=== PATIENT | male | born 1935 | race Caucasian/White ===

== ENCOUNTER 2018-10-30 18:28 | Observation (INO) | payer MEDICARE, OTHER ==
[2018-10-30 18:28] VITALS: PULSE 82; BMI 19.7
--- NOTE | 2018-10-30 20:33 | ED PDOC ---
History of Present Illness History of Present Illness: Andrew Dickerson is an 83 year old male with a past medical history of COPD, CAD, diverticular disease, and hypertension who is bed-bound and presenting to the ED for evaluation of flu-like symptoms onset 3 days ago. History as per daughter who states that patient has a productive cough, tactile fever, and chills associated with decreased appetite. He has not had any nausea, vomiting, or diarrhea. Of note, patient has not had a flu shot. Patient also has a history of anemia fo r which he has needed transfusions in the past. PMD: Silas Diaz HPI: Influenza Time Seen by Provider: 10/30/18 19:32 Chief Complaint: Cough, Cold, Congestion Chief Complaint (Provider): Cough, Cold, Congestion History Per: Patient, Family Exam Limitations: no limitations Onset/Duration Of Symptoms: Days (x3) Symptoms include: fever, cough. denies: vomiting, diarrhea Past Medical History Reviewed: Historical Data, Nursing Documentation, Vital Signs Vital Signs: Last Vital Signs Temp 99.3 F 10/30/18 18:43 Pulse 73 10/30/18 18:43 Resp 18 10/30/18 18:43 BP 107/70 10/30/18 18:43 Pulse Ox 93 L 10/30/18 18:43 - Medical History PMH: Alzheimer's Disease, Anemia, Asthma, Atrial Fibrillation, CAD, Cardia Arrhythmia, COPD, Dementia, Depression, Diabetes, Emphysema, Fractures, Gastritis, HTN, Hypercholesterolemia, Pneumonia Denies: Arthritis, CHF, HIV, Hypothyroidism, Chronic Kidney Disease, Rheumatoid Arthritis - Surgical History Other surgeries: bilateral hip surgery, right hand surgery - Family History Family History: States: Unknown Family Hx - Social History Current smoker - smoking cessation education provided: No Alcohol: None Drugs: Denies - Home Medications Home Medications: Ambulatory Orders Medication Instructions Recorded Acetaminophen [Tylenol 325mg tab] 650 mg PO Q6 PRN #0 tab 08/06/15 Albuterol/Ipratropium [Duoneb 3 3 ml INH RQ6 #0 neb 08/06/15 mg/0.5 mg (3 ml) UD] Escitalopram [Lexapro] 20 mg PO DAILY #0 tab 08/06/15 Ferrous Sulfate 325 mg PO TID #0 tab 08/06/15 diltiaZEM [Cardizem] 60 mg PO QPM #0 tab 08/06/15 - Allergies Allergies/Adverse Reactions: Allergies Allergy/AdvReac Type Severity Reaction Status Date / Time No Known Allergies Allergy Verified 10/30/18 18:42 Review of Systems ROS Statement: Except As Marked, All Systems Reviewed And Found Negative Constitutional: Positive for: Fever, Chills Respiratory: Positive for: Cough Gastrointestinal: Negative for: Nausea, Vomiting, Diarrhea Physical Exam - Reviewed Nursing Documentation Reviewed: Yes Vital Signs Reviewed: Yes - Physical Exam Appears: Positive for: Non-toxic, No Acute Distress (bed bound ) Head Exam: Positive for: ATRAUMATIC, NORMAL INSPECTION, NORMOCEPHALIC Skin: Positive for: Warm, Pallor (mild) Eye Exam: Positive for: EOMI, Normal appearance, PERRL ENT: Positive for: Normal ENT Inspection Neck: Positive for: Normal, Painless ROM Cardiovascular/Chest: Positive for: Irregularly Irregular Respiratory: Positive for: Normal Breath Sounds. Negative for: Respiratory Distress Gastrointestinal/Abdominal: Positive for: Normal Exam, Soft. Negative for: Tenderness Extremity: Positive for: Normal ROM. Negative for: Deformity, Swelling Neurologic/Psych: Positive for: Alert, Oriented. Negative for: Motor/Sensory Deficits Medical Decision Making Medical Decision Making: Time: 20:05 Impression: 83 year old male with flu-like symtoms Plan: --EKG --B-Type Natriuretic Peptide --CMP --Lact Acid, Plasma --Troponin --ED Urine Dipstick --CBC --Coags --Chest X-Ray --Blood Culture --Accucheck --Influenza A B --Urinalysis 21:20 Pneumonia of right base noted on chest x-ray, IV Levaquin ordered. Patient will be admitted to Dr. Aguayo covering for Dr. Huffman. Scribe Attestation: Documented by Cleopatra Ontiveros, acting as a scribe for Ag Moody MD. Provider Scribe Attestation: All medical record entries made by the Scribe were at my direction and personally dictated by me. I have reviewed the chart and agree that the record accurately reflects my personal performance of the history, physical exam, medical decision making, and the department course for this patient. I have also personally directed, reviewed, and agree with the discharge instructions and disposition. - Laboratory Results Result Diagrams: 10/30/18 20:08 - ECG O2 Sat by Pulse Oximetry: 93 Disposition - Clinical Impression Clinical Impression: Pneumonia - Patient ED Disposition Is Patient to be Admitted: Yes - Disposition Disposition Time: 21:22 Condition: FAIR Forms: [employer] (Romansh)
[2018-10-30 20:37] LABS: BASO % 0.5 % (0.0-2.0); EOS # 0.1 K/uL (0.0-0.7); EOS % 1.5 % (0.0-4.0); HEMOGLOBIN 9.3 g/dL (12.0-18.0); LYMPH % 15.3 % (20.0-40.0); MEAN CORPUSCULAR HEMOGLOBIN 27.5 pg (27.0-31.0); MEAN CORPUSCULAR HGB CONC 31.3 g/dL (33.0-37.0); MEAN PLATELET VOLUME 8.2 fl (7.2-11.7); MONO # 0.8 K/uL (0.0-0.8); MONO % 13.4 % (0.0-10.0); NEUT # 4.3 K/uL (1.8-7.0); NEUT % 69.3 % (50.0-75.0); RBC 3.38 Mil/uL (4.40-5.90); RED CELL DISTRIBUTION WIDTH 15.6 % (11.5-14.5); WHITE BLOOD COUNT 6.3 K/uL (4.8-10.8)
[2018-10-30] MEDS ORDERED: levoFLOXacin 500 mg in D5W 500 MG/100 ML BAG IVPB STA (20:58)
[2018-10-30 21:05] LABS: INR 1.1; PROTHROMBIN TIME 12.6 Seconds (9.8-13.1)
[2018-10-30 21:08] LABS: PARTIAL THROMBOPLASTIN TIME 48.3 Seconds (25.6-37.1)
[2018-10-30 23:15] LABS: BLOOD UREA NITROGEN 28 mg/dl (9-20); CALCIUM 8.9 mg/dL (8.4-10.2); GFR NON-AFRICAN AMERICAN > 60
[2018-10-30 23:16] LABS: ALBUMIN 3.7 g/dL (3.5-5.0); ALT/SGPT 23 U/L (21-72); AST/SGOT 32 U/L (17-59); B-TYPE NATRIURETIC PEPTIDE 1250 pg/ml (0-900)
[2018-10-31] MEDS ORDERED: Dextrose 50% SYRINGE Inj (50 ml) IV PRN (06:21)
[2018-10-31] MEDS ORDERED: Glucagon Recombinant 1 mg Inj IM PRN (06:21)
[2018-10-31] MEDS ORDERED: Ergocalciferol 50,000 Intl Units Cap PO SCH (06:30)
[2018-10-31] MEDS: Albuterol-Ipratrop 3 mg / 0.5 (3 ml) UD INH SCH ×3 (07:16→19:13)
[2018-10-31] MEDS ORDERED: FERROUS SULFATE 325 MG PO SCH (09:00)
[2018-10-31] MEDS ORDERED: ASCORBIC ACID 500 MG PO SCH (09:00)
[2018-10-31] MEDS ORDERED: MAGNESIUM OXIDE 400 MG PO SCH (09:00)
[2018-10-31] MEDS ORDERED: Patient's Own Med (Multivit-Min/Fa/Lycopen/Lutein [Centrum Silver Tablet] 1 TAB) PO SCH (09:00)
--- NOTE | 2018-10-31 09:12 | CARD ---
APPROVED REPORT Date of service: 10/30/2018 EKG Measurement Heart [id number] <Conclusion> Atrial fibrillation Baseline artifact Left axis deviation Incomplete right bundle branch block Inferior infarct, age undetermined Abnormal ECG
[2018-10-31] MEDS: Insulin Regular 100 units/ml SC SCH ×4 (09:37→22:19)
[2018-10-31] MEDS: guaiFENesin DM 200 mg-20 mg/10 ml UD PO SCH ×2 (09:45→17:06)
[2018-10-31] MEDS: Pantoprazole 40 mg EC Tab PO SCH (09:45)
[2018-10-31] MEDS ORDERED: Sodium Chloride 3% for Inhalation 4 ML VIAL.NEB IH PRN (11:13)
--- NOTE | 2018-10-31 11:27 | RAD ---
Date of service: 10/30/2018 HISTORY: Chest pain. COMPARISON: 07/26/2015 FINDINGS: LUNGS: Chronic interstitial lung disease. Biapical scarring left greater than right. PLEURA: No significant pleural effusion identified, no pneumothorax apparent. CARDIOVASCULAR: No radiographic findings to suggest acute or significant cardiovascular disease. Atherosclerotic calcifications identified primarily aortic arch. OSSEOUS STRUCTURES: No significant abnormalities. VISUALIZED UPPER ABDOMEN: Normal. OTHER FINDINGS: None. IMPRESSION: No active disease. No significant interval change compared to the prior examination(s).
--- NOTE | 2018-10-31 19:09 | CP.PCM.HP ---
History of Present Illness - History of Present Illness History of Present Illness: This is an 84 y/o male admitted for increasing SOB and cough for the past few days. Past Patient History - Past Medical History & Family History Past Medical History?: Yes - Past Social History Smoking Status: Former Smoker - CARDIAC Hx Cardiac Disorders: Yes Hx Atrial Fibrillation: Yes Hx Cardia Arrhythmia: Yes Hx Congestive Heart Failure: No Hx Hypercholesterolemia: Yes Hx Hypertension: Yes - PULMONARY Hx Respiratory Disorders: Yes Hx Asthma: Yes Hx Chronic Obstructive Pulmonary Disease (COPD): Yes Hx Emphysema: Yes Hx Pneumonia: Yes - NEUROLOGICAL Hx Neurological Disorder: Yes Hx Alzheimer's Disease: Yes Hx Dementia: Yes - HEENT Hx HEENT Problems: Yes - RENAL Hx Chronic Kidney Disease: No - ENDOCRINE/METABOLIC Hx Hypothyroidism: No - HEMATOLOGICAL/ONCOLOGICAL Hx Blood Disorders: Yes Hx Anemia: Yes Hx Human Immunodeficiency Virus (HIV): No - INTEGUMENTARY Hx Dermatological Problems: No - MUSCULOSKELETAL/RHEUMATOLOGICAL Hx Musculoskeletal Disorders: Yes Hx Arthritis: No Hx Falls: Yes Hx Fractures: Yes Hx Rheumatoid Arthritis: No - GASTROINTESTINAL Hx Gastrointestinal Disorders: Yes Hx Gastritis: Yes - GENITOURINARY/GYNECOLOGICAL Hx Genitourinary Disorders: No - PSYCHIATRIC Hx Psychophysiologic Disorder: Yes Hx Depression: Yes Hx Substance Use: No - SURGICAL HISTORY Hx Surgeries: Yes Hx Orthopedic Surgery: Yes Other/Comment: RIGHT HIP ORIF - ANESTHESIA Hx Anesthesia: Yes Hx Anesthesia Reactions: No Hx Malignant Hyperthermia: No Meds Allergies/Adverse Reactions: Allergies Allergy/AdvReac Type Severity Reaction Status Date / Time levofloxacin Allergy ITCHING Verified 10/31/18 02:22 acetaminophen [From Tylenol] AdvReac bleeding Verified 10/31/18 02:22 aspirin AdvReac bleeding Verified 10/31/18 02:22 Results - Vital Signs Recent Vital Signs: Last Vital Signs Temp 98.3 F 10/31/18 17:00 Pulse 77 10/31/18 17:00 Resp 20 10/31/18 17:00 BP 111/49 L 10/31/18 17:00 Pulse Ox 94 L 10/31/18 17:00 - Labs Result Diagrams: 10/30/18 20:08 10/30/18 22:05 Labs: Laboratory Results - last 24 hr 10/30/18 10/30/18 10/30/18 20:08 20:08 20:08 WBC 6.3 RBC 3.38 L Hgb 9.3 L Hct 29.7 L MCV 88.0 D MCH 27.5 MCHC 31.3 L RDW 15.6 H Plt Count 339 D MPV 8.2 Neut % (Auto) 69.3 Lymph % (Auto) 15.3 L [place] % (Auto) 13.4 H Eos % (Auto) 1.5 Baso % (Auto) 0.5 Neut # (Auto) 4.3 Lymph # (Auto) 1.0 [place] # (Auto) 0.8 Eos # (Auto) 0.1 Baso # (Auto) 0.0 PT 12.6 INR 1.1 APTT 48.3 H Sodium Potassium Chloride Carbon Dioxide Anion Gap BUN Creatinine Est GFR ( Amer) Est GFR (Non-Af Amer) POC Glucose (mg/dL) Random Glucose Lactic Acid Calcium Total Bilirubin AST ALT Alkaline Phosphatase Troponin I NT-Pro-B Natriuret Pep Total Protein Albumin Globulin Albumin/Globulin Ratio Influenza Typ A,B (EIA) Negative for flu a/b 10/30/18 10/30/18 10/31/18 20:24 22:05 06:34 WBC RBC Hgb Hct MCV MCH MCHC RDW Plt Count MPV Neut % (Auto) Lymph % (Auto) [place] % (Auto) Eos % (Auto) Baso % (Auto) Neut # (Auto) Lymph # (Auto) [place] # (Auto) Eos # (Auto) Baso # (Auto) PT INR APTT Sodium 136 Potassium 4.4 Chloride 98 Carbon Dioxide 28 Anion Gap 14 BUN 28 H Creatinine 1.1 Est GFR ( Amer) > 60 Est GFR (Non-Af Amer) > 60 POC Glucose (mg/dL) 130 H Random Glucose 111 H Lactic Acid 1.6 Calcium 8.9 Total Bilirubin 0.1 L AST 32 ALT 23 Alkaline Phosphatase 87 Troponin I < 0.0120 NT-Pro-B Natriuret Pep 1250 H Total Protein 7.5 Albumin 3.7 Globulin 3.8 Albumin/Globulin Ratio 1.0 Influenza Typ A,B (EIA) 10/31/18 10/31/18 11:03 15:45 WBC RBC Hgb Hct MCV MCH MCHC RDW Plt Count MPV Neut % (Auto) Lymph % (Auto) [place] % (Auto) Eos % (Auto) Baso % (Auto) Neut # (Auto) Lymph # (Auto) [place] # (Auto) Eos # (Auto) Baso # (Auto) PT INR APTT Sodium Potassium Chloride Carbon Dioxide Anion Gap BUN Creatinine Est GFR ( Amer) Est GFR (Non-Af Amer) POC Glucose (mg/dL) 131 H 126 H Random Glucose Lactic Acid Calcium Total Bilirubin AST ALT Alkaline Phosphatase Troponin I NT-Pro-B Natriuret Pep Total Protein Albumin Globulin Albumin/Globulin Ratio Influenza Typ A,B (EIA)
[2018-10-31] MEDS: Multivitamin With Minerals Tab PO SCH (19:16)
[2018-10-31] MEDS: Magnesium Oxide 400 mg Tab UD PO SCH (19:16)
[2018-11-01] MEDS: guaiFENesin DM 200 mg-20 mg/10 ml UD PO SCH ×3 (01:13→17:15)
[2018-11-01 06:32] LABS: HEMOGLOBIN 8.6 g/dL (12.0-18.0); MEAN CELL VOLUME 86.3 fl (80.0-94.0); MEAN CORPUSCULAR HGB CONC 31.2 g/dL (33.0-37.0); RBC 3.17 Mil/uL (4.40-5.90); WHITE BLOOD COUNT 6.4 K/uL (4.8-10.8)
[2018-11-01 06:41] LABS: ALB/GLOB RATIO 0.8 (1.0-2.1); ALBUMIN 3.2 g/dL (3.5-5.0); ALT/SGPT 26 U/L (21-72); AST/SGOT 30 U/L (17-59); BLOOD UREA NITROGEN 28 mg/dl (9-20); CALCIUM 8.6 mg/dL (8.4-10.2); GFR NON-AFRICAN AMERICAN > 60
[2018-11-01] MEDS: Insulin Regular 100 units/ml SC SCH ×4 (07:04→22:26)
[2018-11-01] MEDS: Albuterol-Ipratrop 3 mg / 0.5 (3 ml) UD INH SCH ×3 (07:23→20:11)
[2018-11-01] MEDS ORDERED: Azithromycin 500 MG in Sodium Chloride 0.9% 250 ML IVPB SCH (09:00)
[2018-11-01] MEDS: Magnesium Oxide 400 mg Tab UD PO SCH (09:08)
[2018-11-01] MEDS: Multivitamin With Minerals Tab PO SCH (09:08)
[2018-11-01] MEDS: Pantoprazole 40 mg EC Tab PO SCH (09:09)
--- NOTE | 2018-11-01 15:05 | RAD ---
Date of service: 11/01/2018 HISTORY: sob,cough COMPARISON: 10/30/2018. TECHNIQUE: Chest PA and lateral FINDINGS: LUNGS: Stable findings primarily fibronodular changes and pleural thickening both apices. PLEURA: No significant pleural effusion identified. No pneumothorax apparent. CARDIOVASCULAR: Atherosclerotic calcifications identified primarily aortic arch. No significant interval change compared to the prior examination(s). No pulmonary vascular congestion. OSSEOUS STRUCTURES: No significant abnormalities. VISUALIZED UPPER ABDOMEN: Normal. OTHER FINDINGS: None. IMPRESSION: No active disease. No significant interval change compared to the prior examination(s).
[2018-11-01 17:00] VITALS: RESP 20
--- NOTE | 2018-11-01 22:51 | CARD ---
APPROVED REPORT Date of service: 11/01/2018 EXAM: Two-dimensional and M-mode echocardiogram with Doppler and color Doppler. Other Information Quality : PoorRhythm : NSR Technically limited study due to Only 4C window available INDICATION Elevated Pro BNp Aortic Valve AoV Peak Qxljtwfr690.7cm/sAoV VTI20.7cmAO Peak GR.7mmHg LVOT Peak Qgbxjaxt19.6cm/sLVOT VTI14.62cmAO Mean GR.4mmHg Mitral Valve MV E Xjrlxujh88.6cm/sMV DECEL [id number] A Vddiyyho43.8cm/s MV KAV19vzE/A ratio1.1MVA (PHT)3.27cm2 TDI E/Lateral E'0.0E/Medial E'0.0 Tricuspid Valve TR Peak Mzbkmibh090ve/sRAP UPVEKYJC56fbGrVD Peak Gr.39mmHg RZZW13dvKx LEFT VENTRICLE The left ventricle is normal size. There is normal left ventricular wall thickness. The left ventricular systolic function is normal. The estimated ejection fraction is 60-65% No regional wall motion abnormalities noted.. Transmitral Doppler flow pattern is Grade I-abnormal relaxation pattern. No left ventricle thrombus noted on this study. There is no ventricular septal defect visualized. There is no left ventricular aneurysm. There is no mass noted in the left ventricle. RIGHT VENTRICLE The right ventricle is normal size. There is normal right ventricular wall thickness. The right ventricular systolic function is normal. ATRIA The left atrium size is mildly dilated. The right atrium size is normal. The interatrial septum is intact with no evidence for an atrial septal defect. AORTIC VALVE The aortic valve is normal in structure. No aortic regurgitation is present. There is no aortic valvular stenosis. There is no aortic valvular vegetation. MITRAL VALVE The mitral valve is normal in structure. There is no evidence of mitral valve prolapse. There is no mitral valve stenosis. There is mild to moderate mitral valve regurgitation noted. TRICUSPID VALVE The tricuspid valve is normal in structure. There is mild tricuspid valve regurgitation noted. RVSP is calculated at 45 mm Hg, consistent with mild pulmonary hypertension. There is no tricuspid valve prolapse or vegetation. There is no tricuspid valve stenosis. PULMONIC VALVE The pulmonary valve is normal in structure. There is no pulmonic valvular regurgitation. There is no pulmonic valvular stenosis. GREAT VESSELS The aortic root is normal in size. The ascending aorta is normal in size. The pulmonary artery is normal. The IVC is not visualized. PERICARDIAL EFFUSION There is no pericardial effusion. There is no pleural effusion. <Conclusion> Technically difficult study with limited views. The estimated ejection fraction is 60-65% Transmitral Doppler flow pattern is Grade I-abnormal relaxation pattern. The left atrium size is probably mildly dilated. There is mild to moderate mitral valve regurgitation noted. There is mild tricuspid valve regurgitation noted. RVSP is calculated at 45 mm Hg, consistent with mild pulmonary hypertension. The IVC is not visualized.
[2018-11-01 23:48] VITALS: BP 99/56; PULSE 85; TEMP 98.1; O2SAT 94
[2018-11-02] MEDS: guaiFENesin DM 200 mg-20 mg/10 ml UD PO SCH (00:58)
== END 2018-11-02 01:29 | disposition home health service (06) ==
LOC: H.ER 18:28 → H.ERHOLD 21:33 → INTOOBSV 21:33 → H.MEDSURG1 10-31 01:59
PROVIDERS: ADMIT Family Medicine; ATTEND Family Medicine
DX: J18.9 Pneumonia, unspecified organism (principal); J43.9 Emphysema, unspecified; I25.10 Atherosclerotic heart disease of native coronary artery without angina pectoris; I10 Essential (primary) hypertension; I48.91 Unspecified atrial fibrillation; F02.80 Dementia in other diseases classified elsewhere, unspecified severity, without behavioral disturbance, psychotic disturbance, mood disturbance, and anxiety; G30.9 Alzheimer's disease, unspecified; E11.9 Type 2 diabetes mellitus without complications; E78.00 Pure hypercholesterolemia, unspecified; Z87.01 Personal history of pneumonia (recurrent); Z87.891 Personal history of nicotine dependence; Z88.6 Allergy status to analgesic agent; Z88.1 Allergy status to other antibiotic agents
CPT/HCPCS: 36415; 71045; 71046; 80053; 82948; 83605; 83880; 84145; 84484; 85025; 85027; 85610; 85730; 87040; 87070; 87804; 93005; 93306; 94640; 99283; G0378; J0456; J0696; J7050

== ENCOUNTER 2019-03-24 05:51 | Inpatient (IN) | payer MEDICARE, OTHER ==
[2019-03-24 05:52] VITALS: PULSE 82; BMI 19.7
[2019-03-24] MEDS ORDERED: Albuterol-Ipratrop 3 mg / 0.5 (3 ml) UD INH STA (06:14)
--- NOTE | 2019-03-24 06:19 | ED PDOC ---
HPI: SOB/CHF/COPD Time Seen by Provider: 03/24/19 05:55 Chief Complaint (Nursing): Respiratory Distress Chief Complaint (Provider): Respiratory Distress History Per: Patient, EMS, Family (Daughter) History/Exam Limitations: no limitations Associated Symptoms: denies: Fever, Chest Pain Additional Complaint(s): 83 years old male with history of COPD, GI bleed, anemia, pneumonia and diabetes brought by EMS to ED for evaluation of low O2Sat. 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 EMS report on arrival the O2Sat was 77%. Daughter reports patient uses oxygen only when needed, not all the time. Patient denies any complaints, chest pain, shortness of breath, recent illnesses, cough or fever. PMD: Silas Diaz Past Medical History Reviewed: Historical Data, Nursing Documentation, Vital Signs Vital Signs: Last Vital Signs Temp 97.9 F 03/24/19 05:53 Pulse 74 03/24/19 05:53 Resp 22 03/24/19 05:53 BP 115/40 L 03/24/19 05:53 Pulse Ox 100 03/24/19 05:53 Primary Care Provider: Silas Diaz - Medical History PMH: Alzheimer's Disease, Anemia, Asthma, Atrial Fibrillation, CAD, Cardia Arrhythmia, COPD, Dementia, Depression, Diabetes, Emphysema, Fractures, Gastritis, HTN, Hypercholesterolemia, Pneumonia Denies: Arthritis, CHF, HIV, Hypothyroidism, Chronic Kidney Disease, Rheumatoid Arthritis Other PMH: GI bleed - Surgical History Surgical History: No Surg Hx - Family History Family History: States: Unknown Family Hx - Home Medications Home Medications: Ambulatory Orders Medication Instructions Recorded Albuterol/Ipratropium [Duoneb 3 3 ml INH RQ6 #0 neb 08/06/15 mg/0.5 mg (3 ml) UD] Escitalopram [Lexapro] 20 mg PO DAILY #0 tab 08/06/15 Ferrous Sulfate 325 mg PO TID #0 tab 08/06/15 Ascorbic Acid [Vitamin C] 500 mg PO DAILY 10/30/18 Ergocalciferol (Vitamin D2) 1 cap PO QWK 10/30/18 [Vitamin D2] Magnesium Oxide [Mag-Oxide] 400 mg PO DAILY 10/30/18 Metoprolol Tartrate [Lopressor] 6.25 mg PO PRN PRN 10/30/18 Omeprazole 20 mg PO DAILY 10/30/18 metFORMIN [glucOPHAGE] 500 mg PO BID 10/30/18 - Allergies Allergies/Adverse Reactions: Allergies Allergy/AdvReac Type Severity Reaction Status Date / Time azithromycin Allergy ITCHING Verified 03/24/19 05:54 levofloxacin Allergy ITCHING Verified 03/24/19 05:54 acetaminophen [From Tylenol] AdvReac bleeding Verified 03/24/19 05:54 aspirin AdvReac bleeding Verified 03/24/19 05:54 Review of Systems ROS Statement: Except As Marked, All Systems Reviewed And Found Negative Constitutional: Negative for: Fever Cardiovascular: Negative for: Chest Pain Respiratory: Negative for: Cough, Shortness of Breath Physical Exam - Reviewed Nursing Documentation Reviewed: Yes Vital Signs Reviewed: Yes - Physical Exam Appears: Positive for: Well, No Acute Distress Head Exam: Positive for: ATRAUMATIC, NORMOCEPHALIC Skin: Positive for: Warm, Dry, Pallor Eye Exam: Positive for: Normal appearance, EOMI, PERRL ENT: Positive for: Normal ENT Inspection Neck: Positive for: Normal, Painless ROM, Supple Cardiovascular/Chest: Positive for: Regular Rate, Rhythm. Negative for: Murmur Respiratory: Positive for: Crackles (throughout left lung). Negative for: Accessory Muscle Use Gastrointestinal/Abdominal: Positive for: Normal Exam, Soft. Negative for: Tenderness Back: Positive for: Normal Inspection. Negative for: L CVA Tenderness, R CVA Tenderness Extremity: Positive for: Other (Contraction to lower extremities) Neurological/Psych: Positive for: Awake, Alert, Oriented (x3), Other (Speaking full sentence) - Laboratory Results Result Diagrams: 03/24/19 06:12 03/24/19 06:12 - ECG O2 Sat by Pulse Oximetry: 100 (RA) Pulse Ox Interpretation: Normal Medical Decision Making Medical Decision Making: Time: 606 A/P: unexplained hypoxia possibly related to pneumonia vs. pulmonary edema vs. ASC vs. chronic lung disease --ABG --EKG --BNP --BMP --CBC --PTT --PT --CXR --Albuterol 4 ml INH --Blood culture [address] Meraz, pending labs and reevaluation. - Scribe Attestation: Documented by Kathleen Herzog acting as a scribe for Ga Kang MD. Provider Scribe Attestation: All medical record entries made by the Scribe were at my direction and personally dictated by me. I have reviewed the chart and agree that the record accurately reflects my personal performance of the history, physical exam, medical decision making, and the department course for this patient. I have also personally directed, reviewed, and agree with the discharge instructions and disposition. Disposition - Clinical Impression Clinical Impression: Pneumonia - Patient ED Disposition Is Patient to be Admitted: Transfer of Care - Disposition Disposition: Transfer of Care Disposition Time: 07:00 Condition: FAIR Patient Signed Over To: Paz Meraz (pending labs and reevaluation)
[2019-03-24 06:27] LABS: ABG ALLEN TEST YES; ARTERIAL BLOOD GAS HCO3 29.4 mmol/L (21-28); ARTERIAL BLOOD GAS PCO2 53 mm/Hg (35-45); ARTERIAL BLOOD GAS PH 7.39 (7.35-7.45); ARTERIAL BLOOD GAS PO2 102 mm/Hg (80-100); ARTERIAL BLOOD GAS TCO2 33.7 mmol/L (22-28)
[2019-03-24] MEDS ORDERED: Albuterol-Ipratrop 3 mg / 0.5 (3 ml) UD ONE (06:34)
[2019-03-24] MEDS ORDERED: cefTRIAXone 2 GM in Sodium Chloride 0.9% 100 ML IVPB STA (06:47)
[2019-03-24] MEDS ORDERED: Sodium Chloride 0.9% 1,000 ML IV STA (06:48)
[2019-03-24 07:03] LABS: BASO # 0.1 K/uL (0.0-0.2); EOS # 0.3 K/uL (0.0-0.7)
[2019-03-24 07:10] LABS: BASO % 1.3 % (0.0-2.0); EOS % 4.1 % (0.0-4.0); LYMPH % 14.1 % (20.0-40.0); MEAN CELL VOLUME 93.6 fl (80.0-94.0); MEAN CORPUSCULAR HEMOGLOBIN 29.7 pg (27.0-31.0); MEAN CORPUSCULAR HGB CONC 31.7 g/dL (33.0-37.0); MEAN PLATELET VOLUME 8.3 fl (7.2-11.7); MONO # 0.7 K/uL (0.0-0.8); MONO % 9.5 % (0.0-10.0); NRBC % 0.1 % (0.0-0.0); RBC 2.18 Mil/uL (4.40-5.90); RED CELL DISTRIBUTION WIDTH 15.5 % (11.5-14.5)
--- NOTE | 2019-03-24 07:15 | ED PDOC ---
- Laboratory Results Result Diagrams: 03/26/19 10:50 03/24/19 06:12 Lab Results: pCO2 53 mm/Hg (35-45) H 03/24/19 06:19 pO2 102 mm/Hg (80-100) H 03/24/19 06:19 HCO3 29.4 mmol/L (21-28) H 03/24/19 06:19 ABG pH 7.39 (7.35-7.45) 03/24/19 06:19 ABG Total CO2 33.7 mmol/L (22-28) H 03/24/19 06:19 ABG O2 Saturation 101.0 % (95-98) H 03/24/19 06:19 ABG Base Excess 5.7 mmol/L (-2.0-3.0) H 03/24/19 06:19 Chris Test Yes 03/24/19 06:19 ABG Potassium 4.3 mmol/L (3.6-5.2) 03/24/19 06:19 A-a O2 Difference 31.0 mm/Hg 03/24/19 06:19 Sodium 137.0 mmol/L (132-148) 03/24/19 06:19 Chloride 104.0 mmol/L (98-107) 03/24/19 06:19 Glucose 107 mg/dL (75-110) 03/24/19 06:19 Lactate 1.0 mmol/L (0.7-2.1) 03/24/19 06:19 FiO2 28.0 % 03/24/19 06:19 - ECG O2 Sat by Pulse Oximetry: 100 (RA) Medical Decision Making Medical Decision Makin: This patient signed out to this provider. Pending CT and labs. Disposition - Clinical Impression Clinical Impression: COPD exacerbation, Lung mass, Anemia - POA Present On Arrival: None - Disposition Disposition: Admitted as In-Patient Disposition Time: 08:40 Condition: STABLE
[2019-03-24 07:19] LABS: HEMOGLOBIN 6.5 g/dL (12.0-18.0)
[2019-03-24 07:24] LABS: BLOOD UREA NITROGEN 23 mg/dl (9-20); CALCIUM 8.6 mg/dL (8.4-10.2); GFR NON-AFRICAN AMERICAN > 60
[2019-03-24 07:32] LABS: B-TYPE NATRIURETIC PEPTIDE 878 pg/ml (0-900)
[2019-03-24 07:34] LABS: PROTHROMBIN TIME 11.6 Seconds (9.8-13.1)
[2019-03-24 07:37] LABS: PARTIAL THROMBOPLASTIN TIME 48.1 Seconds (25.6-37.1)
--- NOTE | 2019-03-24 08:47 | CT ---
Date of service: 03/24/2019 PROCEDURE: CT Chest without contrast HISTORY: hypoxia COMPARISON: Unenhanced chest CT 05/08/2015. TECHNIQUE: Contiguous axial images were obtained through the chest without intravenous contrast enhancement. Sagittal and coronal reconstructions were performed. Radiation dose: Total exam DLP = 426.49 mGy-cm. This CT exam was performed using one or more of the following dose reduction techniques: Automated exposure control, adjustment of the mA and/or kV according to patient size, and/or use of iterative reconstruction technique. FINDINGS: LUNGS: Centrilobular emphysematous changes are again apparent primarily at the bilateral upper lobes but also affecting the left lower lobe markedly. Right lower and right middle lobes remain least affected. Marked volume loss is appreciated at the left lung due to extensive fibrosis once again, particularly at the left lower lobe with diminished bulla favored over cavitation at the left apex versus diminished chronic pneumothorax. Chronic pneumothorax is felt to be the least likely origin of this finding. Mild traction bronchiectasis is appreciate the left upper and lower lobes once again. Overall, central airways appear grossly clear though motion artifacts from respiration obscure the exam somewhat. No definite acute infiltrate. In fact, there is apparent resolution of prior infiltrate seen the bilateral upper lobes. There is a nodule with spiculated changes at the right upper lobe in image 28 series 3 measuring 1.2 x 1.0 cm with spicular peripheral changes suspicious for neoplasm. No additional pulmonary mass appreciable. MEDIASTINUM: The thoracic inlet appears unremarkable. Normal caliber thoracic aorta though prominent atherosclerotic changes are associated. Mild to moderate mediastinal lymphadenopathy is appreciate including 1.9 x 1.7 cm precarinal lymph node, 1.4 x 1.2 cm inferior pretracheal lymph node and a 1.5 x 1.0 cm left suprahilar lymph node. No prominent right hilar adenopathy. Normal sized heart. Main pulmonary artery unremarkable. No vascular congestion. Calcific atherosclerotic changes are seen related to the thoracic aorta. PLEURA: No pleural fluid. No right pneumothorax. Potential chronic small left pneumothorax diminished in volume at left apex versus diminishing cavitation. BONES: Diffuse osteopenia suggests osteoporosis. No acute interval fracture. Thin diffuse bridging osteophytes are again seen throughout the thoracic spine potentially reflecting ankylosing spondylitis or possibly DISH. UPPER ABDOMEN: Grossly unremarkable. OTHER FINDINGS: None. IMPRESSION: 1. No definitive acute infiltrate. In fact, prior left greater than right sided pulmonary infiltrates appear to have resolved in the interval. Trace pericardial thickening or fluid is noted. No pleural effusion bilaterally. 2. 1.2 cm nodule suspicious for neoplasm right upper lobe. [id number] mediastinal lymphadenopathy noted. 3. Gross COPD changes are reiterated including extensive biapical emphysematous and left greater than right fibrotic changes as well as left lower lobe. Diminished large bulla or cavitation left apex. Diminishing small chronic left apical pneumothorax less likely.
--- NOTE | 2019-03-24 09:20 | RAD ---
Date of service: 03/24/2019 HISTORY: hypoxia COMPARISON: Chest radiographs 11/01/2018. TECHNIQUE: 1 view obtained. FINDINGS: LUNGS: Chronic pulmonary fibrotic changes are again identified primarily at the bilateral apices with significant left-sided volume loss reiterated. Prominent apical pleural thickening is reiterated at the left apex with potential calcified granulomata at the left apex as well. A skin fold is seen at the inferior right chest laterally. PLEURA: No significant pleural effusion identified, no pneumothorax apparent. CARDIOVASCULAR: Calcific atherosclerotic changes are seen related to the thoracic aorta. Normal cardiac size. No pulmonary vascular congestion. OSSEOUS STRUCTURES: No significant abnormalities. VISUALIZED UPPER ABDOMEN: Normal. OTHER FINDINGS: None. IMPRESSION: Left greater than right biapical pulmonary fibrosis and pleural thickening are reiterated with volume loss again noted at the left chest, potentially post granulomatous etiology. No acute infiltrate, pleural effusion or pneumothorax. No pulmonary vascular congestion.
[2019-03-24] MEDS: Dextrose 5%/Lactated Ringer's 1,000 ML IV SCH (16:03)
--- NOTE | 2019-03-24 17:39 | CARD ---
APPROVED REPORT Date of service: 03/24/2019 EKG Measurement Heart [id number] <Conclusion> Sinus rhythm with frequent premature atrial complexes Left axis deviation Incomplete right bundle branch block Inferior infarct, age undetermined Abnormal ECG
[2019-03-24] MEDS: Albuterol-Ipratrop 3 mg / 0.5 (3 ml) UD INH SCH (19:16)
[2019-03-24] MEDS: Lidocaine 5% Patch TD SCH (21:08)
[2019-03-25] MEDS: Albuterol-Ipratrop 3 mg / 0.5 (3 ml) UD INH SCH ×4 (01:00→20:08)
[2019-03-25] MEDS: Dextrose 5%/Lactated Ringer's 1,000 ML IV SCH (03:00)
[2019-03-25 05:58] LABS: MEAN CELL VOLUME 91.1 fl (80.0-94.0); MEAN CORPUSCULAR HEMOGLOBIN 30.6 pg (27.0-31.0); MEAN CORPUSCULAR HGB CONC 33.6 g/dL (33.0-37.0); RBC 2.92 Mil/uL (4.40-5.90); RED CELL DISTRIBUTION WIDTH 15.2 % (11.5-14.5); WHITE BLOOD COUNT 8.7 K/uL (4.8-10.8)
[2019-03-25 06:09] LABS: HEMOGLOBIN 8.9 g/dL (12.0-18.0)
--- NOTE | 2019-03-25 08:46 | CP.PCM.HP ---
History of Present Illness - History of Present Illness History of Present Illness: This is an 83 y/o male admitted for progressive lethargy and very low Ox saturation noted by homemaker. Initial labs showed Hgb of 6.5 he has a hx of COPD , anemia DM 2 and dementia? He stays mostly in bed at home. He receives homemaker services. Noted to have a 1.2 cm RUL nodule. Present on Admission - Present on Admission Any Indicators Present on Admission: No History of DVT/PE: No History of Uncontrolled Diabetes: Yes Urinary Catheter: No Decubitus Ulcer Present: No Review of Systems - Constitutional Constitutional: Anorexia - Respiratory Respiratory: Dyspnea - Gastrointestinal Gastrointestinal: Abdominal Pain Past Patient History - Past Medical History & Family History Past Medical History?: Yes - Past Social History Smoking Status: Former Smoker - CARDIAC Hx Atrial Fibrillation: Yes Hx Cardia Arrhythmia: Yes Hx Congestive Heart Failure: No Hx Hypercholesterolemia: Yes Hx Hypertension: Yes - PULMONARY Hx Asthma: Yes Hx Chronic Obstructive Pulmonary Disease (COPD): Yes Hx Emphysema: Yes Hx Pneumonia: Yes - NEUROLOGICAL Hx Alzheimer's Disease: Yes Hx Dementia: Yes - HEENT Hx HEENT Problems: Yes - RENAL Hx Chronic Kidney Disease: No - ENDOCRINE/METABOLIC Hx Hypothyroidism: No - HEMATOLOGICAL/ONCOLOGICAL Hx Anemia: Yes Hx Human Immunodeficiency Virus (HIV): No - INTEGUMENTARY Hx Dermatological Problems: No - MUSCULOSKELETAL/RHEUMATOLOGICAL Hx Arthritis: No Hx Fractures: Yes Hx Rheumatoid Arthritis: No - GASTROINTESTINAL Hx Gastritis: Yes - GENITOURINARY/GYNECOLOGICAL Hx Genitourinary Disorders: No - PSYCHIATRIC Hx Depression: Yes - SURGICAL HISTORY Hx Surgeries: Yes Hx Orthopedic Surgery: Yes Other/Comment: RIGHT HIP ORIF - ANESTHESIA Hx Anesthesia: Yes Hx Anesthesia Reactions: No Hx Malignant Hyperthermia: No Meds Allergies/Adverse Reactions: Allergies Allergy/AdvReac Type Severity Reaction Status Date / Time azithromycin Allergy ITCHING Verified 03/24/19 05:54 levofloxacin Allergy ITCHING Verified 03/24/19 05:54 acetaminophen [From Tylenol] AdvReac bleeding Verified 03/24/19 05:54 aspirin AdvReac bleeding Verified 03/24/19 05:54 Physical Exam - Head Exam Head Exam: NORMAL INSPECTION - Eye Exam Eye Exam: Normal appearance Additional comments: pale conjunctivae - ENT Exam ENT Exam: Mucous Membranes Moist - Respiratory Exam Respiratory Exam: Clear to Auscultation Bilateral - Cardiovascular Exam Cardiovascular Exam: REGULAR RHYTHM - Neurological Exam Neurological exam: Altered, CN II-XII Intact - Psychiatric Exam Psychiatric exam: Flat Affect Results - Vital Signs Recent Vital Signs: Last Vital Signs Temp 98.0 F 03/25/19 07:58 Pulse 63 03/25/19 07:58 Resp 20 03/25/19 07:58 BP 128/39 L 03/25/19 07:58 Pulse Ox 95 03/25/19 07:58 - Labs Result Diagrams: 03/25/19 05:19 03/24/19 06:12 Labs: Laboratory Results - last 24 hr 03/24/19 03/24/19 03/24/19 09:06 16:14 21:37 WBC RBC Hgb Hct MCV MCH MCHC RDW Plt Count POC Glucose (mg/dL) 127 H 151 H Blood Type O POSITIVE Antibody Screen Negative Crossmatch See Detail BBK History Checked Patient has bt 03/25/19 03/25/19 05:15 05:19 WBC 8.7 RBC 2.92 L Hgb 8.9 L D Hct 26.6 L MCV 91.1 D MCH 30.6 MCHC 33.6 RDW 15.2 H Plt Count 315 POC Glucose (mg/dL) 140 H Blood Type Antibody Screen Crossmatch BBK History Checked Assessment & Plan (1) Anemia Status: Chronic Priority: Medium (2) COPD (chronic obstructive pulmonary disease) Status: Acute (3) Dementia Status: Acute (4) Diabetes mellitus type 2 in nonobese Status: Acute (5) Lung nodule Status: Acute - Assessment and Plan (Free Text) Plan: Cont meds transfusion check cbc conservative approach on lung nodule GI eval antacid PPI
[2019-03-25] MEDS: Lidocaine 5% Patch TD SCH (08:47)
[2019-03-25] MEDS: Magnesium Oxide 400 mg Tab UD PO SCH (09:00)
[2019-03-25] MEDS ORDERED: Lidocaine Hydrochloride 5 ML INJ ONE (10:51)
--- NOTE | 2019-03-25 23:00 | CP.PCM.PN ---
Subjective - Date & Time of Evaluation Date of Evaluation: 03/25/19 Time of Evaluation: 12:20 - Subjective Subjective: Patient feels better had received transfusions and noted Hgb 8.5 Accuchecks are elevated Has no fever. Objective - Vital Signs/Intake and Output Vital Signs (last 24 hours): Temp Pulse Resp BP Pulse Ox 97.8 F 86 18 121/50 L 98 03/25/19 20:27 03/25/19 21:49 03/25/19 20:27 03/25/19 21:49 03/25/19 20:27 - Medications Medications: Current Medications Albuterol/Ipratropium (Duoneb 3 Mg/0.5 Mg (3 Ml) Ud) 3 ml INH RQ6 [facility] Last Admin: 03/25/19 01:00 Dose: 3 ml Ascorbic Acid (Vitamin C 500 Mg Tab) 500 mg PO DAILY [facility] Last Admin: 03/25/19 09:00 Dose: 500 mg Ferrous Sulfate (Feosol) 325 mg PO TID [facility] Last Admin: 03/25/19 17:31 Dose: 325 mg Lidocaine (Lidoderm) 1 ea TD DAILY [facility] Last Admin: 03/25/19 08:47 Dose: Not Given Magnesium Oxide (Mag-Ox) 400 mg PO DAILY [facility] Last Admin: 03/25/19 09:00 Dose: 400 mg Metformin HCl (Glucophage) 500 mg PO BID [facility] Last Admin: 03/25/19 17:31 Dose: 500 mg Metoprolol Tartrate (Lopressor) 6.25 mg PO Q12 [facility] Last Admin: 03/25/19 21:49 Dose: 6.25 mg Pantoprazole Sodium (Protonix Inj) 40 mg IVP DAILY [facility] Last Admin: 03/25/19 09:00 Dose: 40 mg - Labs Labs: 03/25/19 05:19 03/24/19 06:12 PT 11.6 Seconds (9.8-13.1) 03/24/19 06:12 INR 1.0 03/24/19 06:12 APTT 48.1 Seconds (25.6-37.1) H 03/24/19 06:12 - Head Exam Head Exam: NORMAL INSPECTION - Eye Exam Eye Exam: Normal appearance - Respiratory Exam Respiratory Exam: Clear to Ausculation Bilateral - Cardiovascular Exam Cardiovascular Exam: REGULAR RHYTHM - GI/Abdominal Exam GI & Abdominal Exam: Soft Assessment and Plan (1) Anemia Status: Chronic (2) Diabetes mellitus type 2 in nonobese Status: Acute (3) Emphysema with chronic bronchitis Status: Acute (4) GI bleed Status: Acute - Assessment and Plan (Free Text) Plan: Cont meds DC metformin start Januvia and pioglitazone cont meds.
[2019-03-26] MEDS: Albuterol-Ipratrop 3 mg / 0.5 (3 ml) UD INH SCH ×3 (01:12→13:18)
[2019-03-26 08:32] VITALS: RESP 18
[2019-03-26] MEDS: Lidocaine 5% Patch TD SCH (09:03)
[2019-03-26] MEDS: Magnesium Oxide 400 mg Tab UD PO SCH (09:06)
--- NOTE | 2019-03-26 09:18 | CON ---
DATE: 03/25/2019 REFERRING PHYSICIAN: Dr. Mario Aguayo. REASON FOR CONSULTATION: Anemia. HISTORY OF PRESENT ILLNESS: This is an 83-year-old male with a history of anemia in the past, pneumonia, diabetes, hemoglobin was checked, it was low and GI was called. There was no evidence of bleeding. The patient has a history of Alzheimer's, dementia, anemia, asthma, AFib, CAD, cardiac arrhythmia, COPD, depression, diabetes, emphysema, and hypercholesterolemia. The patient is currently lying in bed comfortably in no apparent distress. PAST MEDICAL HISTORY: As above. PAST SURGICAL HISTORY: As above. MEDICATIONS: Have been reviewed. REVIEW OF SYSTEMS: All other systems have been reviewed and negative apart from the HPI. PHYSICAL EXAMINATION: VITAL SIGNS: Here in the hospital are grossly unremarkable. GENERAL: A pleasant elderly male, lying in bed comfortable, in no apparent distress. HEENT: Head, normocephalic and atraumatic. Eyes, pupils are equally reactive to light bilaterally. No conjunctival pallor or icterus. NECK: Supple. Normal range of motion. No lymphadenopathy appreciated. LUNGS: Coarse breath sounds bilaterally. HEART: S1 and S2. Regular rate and rhythm. ABDOMEN: Soft and nontender. Bowel sounds present. No rebound. No guarding. RECTAL: Deferred. EXTREMITIES: Pulses felt bilaterally. SKIN: Warm, dry, and intact. NEUROLOGIC: Alert and oriented x1. LABORATORY DATA: Labs and radiology have been reviewed. WBC is 7.9, hemoglobin 8.9, and hematocrit 26.6. INR 1. ASSESSMENT AND PLAN: An 83-year-old male with anemia, which appears to be chronic. No evidence of gastrointestinal bleeding at this point. Advance diet as tolerated. Discharge planning when stable. goals of care. Thank you for the consult. Dorian Fisher MD/ PhD cc: Mario Aguayo MD
[2019-03-26 11:25] LABS: HEMOGLOBIN 8.8 g/dL (12.0-18.0); MEAN CELL VOLUME 92.5 fl (80.0-94.0); MEAN CORPUSCULAR HEMOGLOBIN 30.4 pg (27.0-31.0); MEAN CORPUSCULAR HGB CONC 32.9 g/dL (33.0-37.0); RBC 2.91 Mil/uL (4.40-5.90); WHITE BLOOD COUNT 9.2 K/uL (4.8-10.8)
--- NOTE | 2019-03-26 12:02 | CP.PCM.PCO ---
Assessment and Plan - Assessment and Plan (Free Text) Assessment: Patient seen and examined this afternoon Seen at bedside, laying in no apparent distress. vss. Denies chest pain, abdominal pain, shortness of breath, nausea vomiting. Labs reviewed- Hemoglobin stable 8.[address] Fisher-cleared for discharge home. Discussed with Medical team Uriah MILES. Patient will follow up with Dr Kody Diaz outpatient (home visits)
[2019-03-26 12:26] VITALS: BP 117/55; PULSE 88; TEMP 98.3
[2019-03-27] MEDS ORDERED: Pantoprazole 40 mg EC Tab PO SCH (09:00)
[2019-03-31 07:49] VITALS: O2SAT 100
--- NOTE | 2019-03-31 13:06 | PQF ---
PROVIDER RESPONSE TEXT: Chronic copd REVIEWER QUERY TEXT: Documentation Clarification Your help is requested in clarifying the following clinical documentation, if you can please further specify in the medical record and discharge summary. Please clarify if anyone of the following diagnosis is an acute exacerbation or a stable condition: COPD and Chronic bronchitis. + documentation of emphysema as well The patient's Clinical Indicators include: Admitted with hypoxia. CT Chest: 1.No definitive acute infiltrate. In fact, prior left greater than right sided pulmonary i nfiltrates appear to have resolved in the interval. Trace pericardial thickening or fluid is noted. No pleural effusion bilaterally. 2. 1.2 cm nodule suspicious for neoplasm right upper lobe.[id number] mediastinal lymphadenopath y noted. 3.Gross COPD changes are reiterated including extensive biapical emphysematous and left greater than right fibrotic changes as well as left lower lobe. Diminished large bulla or cavitation left apex.Di minishing small chronic left apical pneumothorax less likely. Rx: Duonebs Query created by: Julieta Rodriguez on 03/26/2019 7:59 AM Electronically signed by: Mario Augayo MD 03/31/2019 1:03 PM
--- NOTE | 2019-03-31 13:06 | PQF ---
PROVIDER RESPONSE TEXT: Pneumonia ruled out REVIEWER QUERY TEXT: Conflicting Documentation Clarification A single mention of PNEUMONIA by the ER MD for the same clinical presentation appears in the record. Please clarify if pneumonia is ruled in or ruled out. Please clarify the diagnosis/diagnoses. Please also document if the condition is: -- Confirmed and current -- Confirmed, treated and resolved -- Ruled out -- Other, please specify The patient's Clinical Indicators include: Brought in with low O2 sat of 77%. Noted to be anemic. CT Chest: 1.No definitive acute infiltrate.In fact, prior left greater than right sided pulmonary in filtrates appear to have resolved in the interval. Trace pericardial thickening or fluid is noted. N o pleural effusion bilaterally. 2. 1.2 cm nodule suspicious for neoplasm right upper lobe.[id number] mediastinal lymphadenopath y noted. 3.Gross COPD changes are reiterated including extensive biapical emphysematous and left greater than right fibrotic changes as well as left lower lobe. Diminished large bulla or cavitation left apex.Di minishing small chronic left apical pneumothorax less likely. Rx: Fara Query created by: Julieta Rodriguez on 03/26/2019 7:57 AM Electronically signed by: Mario Aguayo MD 03/31/2019 1:03 PM
--- NOTE | 2019-03-31 13:06 | PQF ---
PROVIDER RESPONSE TEXT: Anemia due to chronic blood loss REVIEWER QUERY TEXT: Anemia Type Anemia is documented in the Medical Record. AFTER WORK-UP : Please specify the cause (includes suspe cted or probable cause) Such as: -- Due to acute blood loss -- Due to chronic blood loss -- Due to iron deficiency -- Due to postoperative blood loss -- Due to chronic disease -- Other, please specify The patient's Clinical Indicators include: History of Anemia. Noted to be hypoxic. Rx: Feosol, PRBC, GI consult pending Query created by: Julieta Rodriguez on 03/26/2019 8:01 AM Electronically signed by: Mario Aguayo MD 03/31/2019 1:03 PM
== END 2019-03-26 12:45 | disposition home or self-care (01) | DRG 812 ==
LOC: H.ER 05:51 → H.ERHOLD 08:51 → H.TEL 12:30
PROVIDERS: ADMIT Family Medicine; ATTEND Family Medicine
PROC: 30233N1 Transfusion of Nonautologous Red Blood Cells into Peripheral Vein, Percutaneous Approach (ICD-10-PCS; principal; 2019-03-24)
PROC: 5A0945Z Assistance with Respiratory Ventilation, 24-96 Consecutive Hours (ICD-10-PCS; 2019-03-24)
DX: D50.0 Iron deficiency anemia secondary to blood loss (chronic) (principal); K92.2 Gastrointestinal hemorrhage, unspecified; J43.9 Emphysema, unspecified; E11.9 Type 2 diabetes mellitus without complications; R09.02 Hypoxemia; G30.9 Alzheimer's disease, unspecified; F02.80 Dementia in other diseases classified elsewhere, unspecified severity, without behavioral disturbance, psychotic disturbance, mood disturbance, and anxiety; E78.00 Pure hypercholesterolemia, unspecified; I25.10 Atherosclerotic heart disease of native coronary artery without angina pectoris; Z87.891 Personal history of nicotine dependence; R91.1 Solitary pulmonary nodule; Z88.6 Allergy status to analgesic agent; Z88.1 Allergy status to other antibiotic agents; Z88.3 Allergy status to other anti-infective agents; I48.91 Unspecified atrial fibrillation; I10 Essential (primary) hypertension; F32.9 Major depressive disorder, single episode, unspecified; K29.70 Gastritis, unspecified, without bleeding; Z79.84 Long term (current) use of oral hypoglycemic drugs